=== PATIENT | female | born 1955 | race Caucasian/White ===

== ENCOUNTER 2019-12-12 03:54 | Inpatient (IN) ==
[2019-12-12] MEDS ORDERED: SODIUM CHLORIDE 0.9% 1000ML 1,000 ML IV SCH ×2 (04:30→09:45)
[2019-12-12] MEDS ORDERED: NITROGLYCERIN 2% OINTMENT 30GM TUBE EXT ONE (04:30)
[2019-12-12 04:41] LABS: Basophils # (auto) 0.03 K/uL (0-0.2); Basophils % (auto) 0.4 %; Eosinophils # (auto) 0.11 K/uL (0-0.5); Eosinophils % (auto) 1.4 %; Hematocrit (blood only) 43.3 % (37-47); Hemoglobin 14.8 g/dL (12.0-16.0); Immature Granulocytes # (auto) 0.01 K/uL (0.00-0.02); Immature Granulocytes % (auto) 0.1 %; Lymphocytes # (auto) 2.12 K/uL (1.2-3.4); Lymphocytes % (auto) 26.4 %; Mean Corpuscular Hemoglobin 29.6 pg (25-34); Mean Corpuscular Hgb Conc 34.2 g/dL (32-36); Mean Corpuscular Volume 86.6 fL (80-100); Mean Platelet Volume 9.1 fL (7.4-10.4); Monocytes # (auto) 0.72 K/uL (0.11-0.59); Neutrophils # (auto) 5.05 K/uL (1.4-6.5); Neutrophils % (auto) 62.7 %; Platelet Count 225 K/uL (130-400); RDW Coefficient of Variation 13.7 % (11.5-14.5); RDW Standard Deviation 43.1 fL (36.4-46.3); White Blood Count 8.04 K/uL (4.8-10.8)
[2019-12-12 04:49] LABS: Albumin Level 3.6 gm/dl (3.4-5.0); BUN Creatinine Ratio 13.6 (10-20); Calcium 8.8 mg/dl (8.5-10.1); Est GFR (African American) 67.5; Est GFR (Non-African American) 58.2; Magnesium 2.1 mg/dl (1.8-2.4); Potassium 3.4 mmol/L (3.5-5.1)
[2019-12-12 05:02] LABS: Albumin Globulin Ratio 0.9 (0.9-2); Bilirubin,Total 0.6 mg/dl (0.2-1); Globulin 4.2 gm/dl (2.5-4.0); Thyroid Stimulating Hormone 1.16 uIu/ml (0.300-4.500); Total Protein 7.8 gm/dl (6.4-8.2); Troponin I 0.186 ng/ml (0-0.045)
[2019-12-12] MEDS ORDERED: HEPARIN SOD (PORCINE) 1000 UNIT/ML 10 ML VIAL ONE (05:15)
[2019-12-12] MEDS ORDERED: HEPARIN SODIUM/DEXTROSE 25,000 UNITS/500 ML BAG IV SCH (05:15)
[2019-12-12] MEDS ORDERED: ONDANSETRON INJ 2 MG/ML 2 ML VIAL IV STA (05:19)
[2019-12-12] MEDS ORDERED: MoRPHine SULFATE 4 MG/ML 1 ML CARP\\VIAL IV STA (05:19)
[2019-12-12] MEDS ORDERED: METOPROLOL TARTRATE 25 MG TAB PO STA (05:35)
[2019-12-12] MEDS ORDERED: POTASSIUM CHLORIDE 20 MEQ TABCR PO STA (05:36)
[2019-12-12] MEDS ORDERED: lisinopriL 5 MG TAB PO ONE (05:46)
[2019-12-12 06:10] LABS: Lyme Ab IgG w/WB Rflx Negative (Negative); Lyme Ab IgM w/WB Rflx Negative (Negative)
[2019-12-12 06:11] LABS: Partial Thromboplastin Ratio 0.9; Partial Thromboplastin Time 25.5 Seconds (21.0-31.0); Prothrombin Time 10.2 Seconds (9.0-12.0)
[2019-12-12 06:16] LABS: Appearance Urine Clear (Clear); Bilirubin Urine Negative (Negative); Blood Urine Negative (Negative); Color Urine Yellow; Glucose Urine UA Trace (Negative); Ketones Urine Trace (Negative); Leukocyte Esterase Urine Negative (Negative); Nitrite Urine Negative (Negative); Protein Urine Negative (Negative); Specific Gravity Urine 1.017 (1.000-1.030); Urobilinogen Urine Negative (Negative); pH Urine 6.5 (4.5-7.5)
--- NOTE | 2019-12-12 06:16 | History & Physical Report ---
Date of Service December 12, 2019 Assessment & Plan (1) Uncontrolled hypertension: Hypertensive crisis Possible chronic BP elevation given LVH on EKG and x-ray Chest pain, troponin elevation secondary to above Rule out ACS Hyperglycemia rule out DM Hyperlipidemia as per records currently not on statin Rx Hypothyroidism, euthyroid as of today's TSH Hypokalemia PCU Initiate lisinopril for BP control Follow troponin, TTE RE chest pain Antiplatelet Rx (Plavix given history of aspirin anaphylaxis), beta-ismael, statin Rx, continue IV heparin if with progressive troponin elevation Cardiology consult RE chest pain Check hemoglobin A1c Replace potassium DVT prophylaxis IV heparin for now until ACS ruled out Full code History of Present Illness Chief Complaint: Chest pain Primary Care Provider: Alla Emery MD History obtained from patient, family, and records. Medical history significant for hypothyroidism, hyperlipidemia, asthma as per records. Yesterday morning patient woke up with substernal pain going to her left shoulder with some shortness of breath no cough no diaphoreses. No prior episodes. Spontaneous resolution of chest pain after 5 minutes. Patient roused from sleep this morning with recurrence of chest pain. Initial SBP at the ER 190s. Patient unaware of high blood pressure issues in the past. Denies unusual stress, dietary discretion, OTC NSAID intake. Chest pain relieved by nitroglycerin administration at the ER. IV heparin started at the ER for possible ACS. Medical History as above Surgical History : Tonsillectomy/adenoidectomy, left middle finger ORIF Family History : Heart disease, diabetes Personal/Social history : Non-smoker, occasional EtOH intake, retired pharmacist Allergies Allergy/AdvReac Type Severity Reaction Status Date / Time aspirin Allergy Severe Anaphylaxis Verified 12/12/19 04:14 chicken derived Allergy Severe sob,swellin Verified 12/12/19 04:14 g Penicillins Allergy Intermediate Rash Verified 12/12/19 04:14 Home Medications Home Medications Medication Instructions Recorded Confirmed Type Albuterol Nebulizer 1 dose INHALATION DIRECTED PRN 12/12/19 12/12/19 History cyclobenzaprine 10 mg PO DIRECTED PRN 12/12/19 12/12/19 History levothyroxine [Levoxyl] 125 mcg PO DAILY 12/12/19 12/12/19 History Past Med/Surg History Medical History Hypothyroid Social History Preferred Language: Nauruan Communication Ability: Effective 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 Beliefs That Will Affect Care: None Current Living Situation: Spouse Other Information That Helps Us Care for You: No Feels Safe at Home: Yes Safety Concerns: Feels Safe At This Time Smoking Status: Never smoker Do You Dip or Chew Tobacco: No ; Second Hand Exposure: No ; Tobacco Cessation Education Requested by Patient: No Hx Alcohol Use: Yes Alcohol type: beer and wine Hx Substance Use: No Review of Systems Review of Systems: As per HPI, all 10 systems reviewed, all other ROS negative Physical Exam Physical Exam: GENERAL: Comfortable, obese, pleasant, no respiratory distress SKIN: Normal color, warm HEENT: Bespectacled, [place] palpebral conjunctivae, no ptosis, dry buccal mucosa NECK : Supple, short neck, no tenderness CHEST : CTA, no tenderness HEART : RRR, no obvious murmurs ABDOMEN: Some distention, nontender EXTREMITIES : No LE swelling/tenderness, no other conspicuous deformities noted NEUROLOGIC : Coherent, no facial asymmetry, no other gross focality Results & Data Vital Signs (Past 12 Hours) Vital Signs Temp Pulse Pulse Resp BP BP Pulse Ox 12/12/19 05:46 72 20 157/93 H 95 12/12/19 05:12 62 18 99 12/12/19 03:57 36.9 C 86 18 191/142 H 96 Laboratory Results Laboratory Results WBC 8.04 K/uL (4.8-10.8) 12/12/19 04:00 RBC 5.00 M/uL (4.2-5.4) 12/12/19 04:00 Hgb 14.8 g/dL (12.0-16.0) 12/12/19 04:00 Hct 43.3 % (37-47) 12/12/19 04:00 MCV 86.6 fL (80-100) 12/12/19 04:00 MCH 29.6 pg (25-34) 12/12/19 04:00 MCHC 34.2 g/dL (32-36) 12/12/19 04:00 RDW Std Deviation 43.1 fL (36.4-46.3) 12/12/19 04:00 RDW Coeff of Seema 13.7 % (11.5-14.5) 12/12/19 04:00 Plt Count 225 K/uL (130-400) 12/12/19 04:00 MPV 9.1 fL (7.4-10.4) 12/12/19 04:00 Immature Gran % (Auto) 0.1 % 12/12/19 04:00 Neut % (Auto) 62.7 % 12/12/19 04:00 Lymph % (Auto) 26.4 % 12/12/19 04:00 Calvert % (Auto) 9.0 % 12/12/19 04:00 Eos % (Auto) 1.4 % 12/12/19 04:00 Baso % (Auto) 0.4 % 12/12/19 04:00 Immature Gran # (Auto) 0.01 K/uL (0.00-0.02) 12/12/19 04:00 Neut # (Auto) 5.05 K/uL (1.4-6.5) 12/12/19 04:00 Lymph # (Auto) 2.12 K/uL (1.2-3.4) 12/12/19 04:00 Calvert # (Auto) 0.72 K/uL (0.11-0.59) H 12/12/19 04:00 Eos # (Auto) 0.11 K/uL (0-0.5) 12/12/19 04:00 Baso # (Auto) 0.03 K/uL (0-0.2) 12/12/19 04:00 Sodium 141 mmol/L (136-145) 12/12/19 04:00 Potassium 3.4 mmol/L (3.5-5.1) L 12/12/19 04:00 Chloride 110 mmol/L (98-107) H 12/12/19 04:00 Carbon Dioxide 24 mmol/L (21-32) 12/12/19 04:00 Anion Gap 7.0 (3-11) 12/12/19 04:00 BUN 14 mg/dl (7-18) 12/12/19 04:00 Creatinine 1.03 mg/dl (0.6-1.2) 12/12/19 04:00 Est Cr Clr Drug Dosing 64.0 ml/min 12/12/19 04:00 Est GFR ( Amer) 67.5 12/12/19 04:00 Est GFR (Non-Af Amer) 58.2 12/12/19 04:00 BUN/Creatinine Ratio 13.6 (10-20) 12/12/19 04:00 Glucose 146 mg/dl (70-99) H 12/12/19 04:00 Calcium 8.8 mg/dl (8.5-10.1) 12/12/19 04:00 Magnesium 2.1 mg/dl (1.8-2.4) 12/12/19 04:00 Total Bilirubin 0.6 mg/dl (0.2-1) 12/12/19 04:00 AST 34 U/L (15-37) 12/12/19 04:00 ALT 53 U/L (12-78) 12/12/19 04:00 Alkaline Phosphatase 110 U/L (45-117) 12/12/19 04:00 Troponin I 0.186 ng/ml (0-0.045) H* 12/12/19 04:00 Total Protein 7.8 gm/dl (6.4-8.2) 12/12/19 04:00 Albumin 3.6 gm/dl (3.4-5.0) 12/12/19 04:00 Globulin 4.2 gm/dl (2.5-4.0) H 12/12/19 04:00 Albumin/Globulin Ratio 0.9 (0.9-2) 12/12/19 04:00 Lipase 108 U/L (73-393) 12/12/19 04:00 TSH 1.160 uIu/ml (0.300-4.500) 12/12/19 04:00 Lyme Disease IgG Ab Negative (Negative) 12/12/19 04:00 Lyme Disease IgM Ab Negative (Negative) 12/12/19 04:00 Diagnostic Findings Chest x-ray as per my interpretation cardiomegaly EKG as per my interpretation rate 60, NSR, LAD, LAFB, LVH, T wave abnormalities septal leads
[2019-12-12 06:27] LABS: D Dimer 720 ug/L FEU (0-500)
--- NOTE | 2019-12-12 07:08 | Emergency Department Note ---
History of Present Illness General Chief complaint: Chest Pain Stated complaint: Chest pain History of Present Illness Maximum Pain Intensity: 1 This is a 64-year-old female presenting to the emergency department for evaluation of left-sided chest pain radiating into her left arm for the past 1 to 2 hours. The patient does not have a history of cardiac disease herself, but states that she has a very strong family history of cardiac disease. Evidently her father had his first heart attack at 27, and her mother had her first heart attack at 50. The patient is allergic to aspirin with anaphylaxis, and has not taken anything [id number] for her symptoms. She rates her current discomfort a 1/10, dull, and radiating into her left arm. No lightheadedness or dizziness. No abdominal pain. No recent travel history. Home Medications Home Medications Medication Instructions Recorded Confirmed Type Albuterol Nebulizer 1 dose INHALATION DIRECTED PRN 12/12/19 12/12/19 History cyclobenzaprine 10 mg PO DIRECTED PRN 12/12/19 12/12/19 History levothyroxine [Levoxyl] 125 mcg PO DAILY 12/12/19 12/12/19 History cilostazol 100 mg PO BID 30 Days #60 tab 12/13/19 Rx clopidogrel [Plavix] 75 mg PO DAILY #30 tab 12/13/19 Rx lisinopril 10 mg PO QAM 30 Days #30 tab 12/13/19 Rx metoprolol tartrate 25 mg PO BID 30 Days #60 tab 12/13/19 Rx nitroglycerin [Nitrostat] 0.4 mg SUBLINGUAL UD PRN #15 tab 12/13/19 Rx Allergies Allergy/AdvReac Type Severity Reaction Status Date / Time aspirin Allergy Severe Anaphylaxis Verified 12/12/19 04:14 chicken derived Allergy Severe sob,swellin Verified 12/12/19 04:14 g Penicillins Allergy Intermediate Rash Verified 12/12/19 04:14 Past Med/Surg History Medical History Hypothyroid Social History Preferred Language: Persian Communication Ability: Effective 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 Beliefs That Will Affect Care: None Current Living Situation: Spouse Feels Safe at Home: Yes Smoking Status: Never smoker Second Hand Exposure: No ; Hx Alcohol Use: Yes Alcohol type: beer and wine Hx Substance Use: No Review of Systems A total of 10 systems reviewed and were otherwise negative Physical Exam Vital Signs Vital Signs - 24 hr 12/12/19 03:57 12/12/19 05:12 12/12/19 05:46 Temperature 36.9 C Temperature Source Oral Pulse Rate 86 62 Pulse Rate [Finger] 72 Pulse Rhythm Regular Pulse Rhythm [Finger] Regular Pulse Strength [Finger] Normal Respiratory Rate 18 18 20 Respiratory Effort / Characteristics Non-Labored Spontaneous Respiratory Depth Normal Normal Respiratory Pattern Regular Blood Pressure 191/142 H Blood Pressure [Left Arm] 157/93 H Blood Pressure Mean 158 Blood Pressure Mean [Left Arm] 114 Blood Pressure Position [Left Arm] Lying Pulse Oximetry 96 99 95 Oxygen Delivery Method Room Air Room Air Room Air Sepsis Recent Fever Within 48 Hours No Sepsis Action Taken by Nursing No Action Required 12/12/19 06:20 Temperature Temperature Source Pulse Rate Pulse Rate [Finger] 81 Pulse Rhythm Pulse Rhythm [Finger] Regular Pulse Strength [Finger] Normal Respiratory Rate 17 Respiratory Effort / Characteristics Non-Labored Spontaneous Respiratory Depth Normal Respiratory Pattern Regular Blood Pressure Blood Pressure [Left Arm] 162/105 H Blood Pressure Mean Blood Pressure Mean [Left Arm] 124 Blood Pressure Position [Left Arm] Lying Pulse Oximetry 94 Oxygen Delivery Method Room Air Sepsis Recent Fever Within 48 Hours Sepsis Action Taken by Nursing VITALS: Vitals are noted on the nurse's note and reviewed by myself. Vital signs with elevated blood pressure GENERAL: Well-developed, well-nourished, white female, who is in no acute distress and resting comfortably. Patient is cooperative with the examination. HEAD: Normocephalic atraumatic. EARS: External ear normal. External auditory canals clear, tympanic membranes pearly spencer without erythema or effusion bilaterally. EYES: Pupils equal round and reactive to light and accommodation. Conjunctivae without injection, sclerae without icterus. Extraocular movements intact. NOSE: Patent, turbinates without inflammation or discharge. MOUTH: Mucous membranes moist. Tonsils are not enlarged. Pharynx without erythema, blood, or exudate. Uvula midline. Airway patent. NECK: Supple without nuchal rigidity. No lymphadenopathy. No thyromegaly. Cervical spine is nontender. HEART: Regular rate and rhythm without murmurs gallops or rubs. LUNGS: Clear to auscultation bilaterally without wheezes, rales or rhonchi. No retractions or accessory muscle use. ABDOMEN: Positive normal bowel sounds x 4. Soft, nontender, without masses or organomegaly. No guarding or rebound tenderness. MUSCULOSKELETAL: No muscle atrophy, erythema, or edema noted. Full range of motion in all extremities. NEURO: Patient was alert and oriented to person place and time. CN II through XII grossly intact. SKIN: The skin was without rashes, erythema, edema, or bruising. Capillary refill less than 2 seconds. Course Administered Medications Discontinued Medications Acetaminophen (Tylenol) 650 mg PO Q4H PRN PRN Reason: Pain or Fever Stop: 01/11/20 07:54 Last Admin: 12/13/19 11:08 Dose: 650 mg Documented by: [id number] Atorvastatin Calcium (Lipitor) 80 mg PO QAM [facility] Stop: 01/11/20 09:44 Last Admin: 12/13/19 08:24 Dose: Not Given Documented by: [id number] Admin: 12/12/19 11:00 Dose: Not Given Documented by: [id number] Cilostazol (Pletal) 100 mg PO BID [facility] Stop: 01/11/20 20:59 Last Admin: 12/13/19 08:23 Dose: 100 mg Documented by: [id number] Admin: 12/12/19 20:58 Dose: 100 mg Documented by: [id number] Fentanyl Citrate (Fentanyl Citrate) Confirm Administered Dose 100 mcg .ROUTE .STK-MED ONE Stop: 12/12/19 08:36 Last Admin: 12/12/19 10:37 Dose: Not Given Documented by: [id number] Heparin Sodium (Porcine) (Heparin Iv Bolus) Confirm Administered Dose 10,000 units .ROUTE .STK-MED ONE Stop: 12/12/19 05:16 Last Admin: 12/12/19 05:29 Dose: 6,000 units Documented by: [id number] Cosigned by: [id number] Heparin Sodium (Porcine) (Heparin Iv Bolus (Transmitter Chief Use Only)) Confirm Administered Dose 10,000 units .ROUTE .STK-MED ONE Stop: 12/12/19 08:35 Last Admin: 12/12/19 10:36 Dose: Not Given Documented by: [id number] Heparin Sodium/Dextrose () 1 ea IV NOW STA; Protocol Stop: 12/12/19 05:05 Last Admin: 12/12/19 05:41 Dose: Not Given Documented by: [id number] Heparin Sodium/Sodium Chloride (Heparin/Nss 1000 Unit/500ml Flush Bag) Confirm Administered Dose 3,000 units IV .STK-MED ONE Stop: 12/12/19 08:36 Last Admin: 12/12/19 10:37 Dose: Not Given Documented by: [id number] Sodium Chloride (Nss 1000ml) 1,000 mls @ 999 mls/hr IV .Q1H1M [facility] Stop: 12/12/19 05:30 Last Infusion: 12/12/19 05:57 Dose: 0 mls/hr Documented by: [id number] Admin: 12/12/19 04:50 Dose: 999 mls/hr Documented by: [id number] Heparin Sodium/Dextrose (Heparin Sodium/Dextrose) 25,000 units in 500 mls @ 26 mls/hr IV .[id number] [facility]; Protocol Stop: 01/11/20 05:14 Last Titration: 12/12/19 10:38 Dose: 0 units/hr, 0 mls/hr Documented by: [id number] Cosigned by: [id number] Admin: 12/12/19 05:29 Dose: 1,300 units/hr, 26 mls/hr Documented by: [id number] Cosigned by: [id number] Lactated Ringer's (Lr) 1,000 mls @ 40 mls/hr IV .Q24H ONE Stop: 12/13/19 07:59 Last Admin: 12/12/19 10:36 Dose: Not Given Documented by: [id number] Sodium Chloride (Nss 1000ml) 1,000 mls @ 100 mls/hr IV .Q10H [facility] Stop: 12/12/19 17:14 Last Infusion: 12/12/19 17:58 Dose: 0 mls/hr Documented by: [id number] Admin: 12/12/19 10:37 Dose: 100 mls/hr Documented by: [id number] [facility] Stop: 01/11/20 08:14 Last Admin: 12/13/19 06:13 Dose: Not Given Documented by: [id number] Admin: 12/12/19 11:00 Dose: Not Given Documented by: [id number] Lisinopril (Zestril) 5 mg PO NOW ONE Stop: 12/12/19 05:47 Last Admin: 12/12/19 06:18 Dose: 5 mg Documented by: [id number] Lisinopril (Zestril) 10 mg PO QAM [facility] Stop: 01/12/20 08:59 Last Admin: 12/13/19 08:24 Dose: 10 mg Documented by: [id number] Metoprolol Tartrate (Lopressor) 25 mg PO NOW STA Stop: 12/12/19 05:36 Last Admin: 12/12/19 06:18 Dose: 25 mg Documented by: [id number] Metoprolol Tartrate (Lopressor) 25 mg PO BID [facility] Stop: 01/11/20 20:59 Last Admin: 12/13/19 08:23 Dose: 25 mg Documented by: [id number] Admin: 12/12/19 20:57 Dose: 25 mg Documented by: [id number] Midazolam HCl (Versed) Confirm Administered Dose 2 mg .ROUTE .STK-MED ONE Stop: 12/12/19 08:36 Last Admin: 12/12/19 10:37 Dose: Not Given Documented by: [id number] Morphine Sulfate (Morphine Sulfate) 4 mg IV NOW STA Stop: 12/12/19 05:20 Last Admin: 12/12/19 05:40 Dose: 4 mg Documented by: [id number] Morphine Sulfate (Morphine Sulfate) 4 mg IV Q4H PRN PRN Reason: Pain Stop: 12/26/19 07:54 Last Admin: 12/12/19 08:10 Dose: 2 mg Documented by: [id number] Nicardipine HCl (Cardene) Confirm Administered Dose 25 mg .ROUTE .STK-MED ONE Stop: 12/12/19 08:35 Last Admin: 12/12/19 10:36 Dose: Not Given Documented by: [id number] Nitroglycerin (Nitro-Bid 2%) 1 inch EXT NOW ONE Stop: 12/12/19 04:31 Last Admin: 12/12/19 04:50 Dose: 1 inch Documented by: [id number] Nitroglycerin/Dextrose (Nitroglycerin/D5w 100 Mcg/Ml 20ml Syringe) Confirm Administered Dose 2,000 mcg .ROUTE .STK-MED ONE Stop: 12/12/19 08:36 Last Admin: 12/12/19 10:37 Dose: Not Given Documented by: [id number] Ondansetron HCl (Zofran) 4 mg IV NOW STA Stop: 12/12/19 05:20 Last Admin: 12/12/19 05:41 Dose: 4 mg Documented by: [id number] Potassium Chloride (Klor-Con M20) 40 meq PO NOW STA Stop: 12/12/19 05:37 Last Admin: 12/12/19 06:18 Dose: 40 meq Documented by: [id number] Ticagrelor (Brilinta) Confirm Administered Dose 180 mg PO .STK-MED ONE Stop: 12/12/19 09:41 Last Admin: 12/12/19 09:56 Dose: 180 mg Documented by: [id number] Ticagrelor (Brilinta) 90 mg PO BID JOHN Stop: 01/11/20 20:59 Last Admin: 12/13/19 08:24 Dose: 90 mg Documented by: [id number] Admin: 12/12/19 20:58 Dose: 90 mg Documented by: [id number] Medical Decision Making Differential Diagnosis Differential diagnosis includes, but is not limited to: Myocardial infarction, dysrhythmia, pericarditis, pneumothorax, aortic aneurysm/dissection, DVT/PE, anxiety, GERD, PUD, electrolyte imbalance, thyroid disorder, pneumonia, bronchitis, pancreatitis, and others Laboratory Data Result diagrams: 12/13/19 06:33 12/13/19 06:33 Lab Results 12/12/19 12/12/19 12/12/19 Range/Units 04:00 04:00 04:00 WBC 8.04 (4.8-10.8) K/uL RBC 5.00 (4.2-5.4) M/uL Hgb 14.8 (12.0-16.0) g/dL Hct 43.3 (37-47) % MCV 86.6 (80-100) fL MCH 29.6 (25-34) pg MCHC 34.2 (32-36) g/dL RDW Std Deviation 43.1 (36.4-46.3) fL RDW Coeff of Seema 13.7 (11.5-14.5) % Plt Count 225 (130-400) K/uL MPV 9.1 (7.4-10.4) fL Immature Gran % (Auto) 0.1 % Neut % (Auto) 62.7 % Lymph % (Auto) 26.4 % Cameron % (Auto) 9.0 % Eos % (Auto) 1.4 % Baso % (Auto) 0.4 % Immature Gran # (Auto) 0.01 (0.00-0.02) K/uL Neut # (Auto) 5.05 (1.4-6.5) K/uL Lymph # (Auto) 2.12 (1.2-3.4) K/uL Cameron # (Auto) 0.72 H (0.11-0.59) K/uL Eos # (Auto) 0.11 (0-0.5) K/uL Baso # (Auto) 0.03 (0-0.2) K/uL PT 10.2 (9.0-12.0) Seconds INR 1.0 (0.9-1.1) APTT 25.5 (21.0-31.0) Seconds PTT Ratio 0.9 D-Dimer 720 H* (0-500) ug/L FEU Sodium 141 (136-145) mmol/L Potassium 3.4 L (3.5-5.1) mmol/L Chloride 110 H (98-107) mmol/L Carbon Dioxide 24 (21-32) mmol/L Anion Gap 7.0 (3-11) BUN 14 (7-18) mg/dl Creatinine 1.03 (0.6-1.2) mg/dl Est Cr Clr Drug Dosing 64.0 ml/min Est GFR ( Amer) 67.5 Est GFR (Non-Af Amer) 58.2 BUN/Creatinine Ratio 13.6 (10-20) Glucose 146 H (70-99) mg/dl Estimat Average Glucose mg/dl Hemoglobin A1c (4.5-5.6) % Calcium 8.8 (8.5-10.1) mg/dl Magnesium 2.1 (1.8-2.4) mg/dl Total Bilirubin 0.6 (0.2-1) mg/dl AST 34 (15-37) U/L ALT 53 (12-78) U/L Alkaline Phosphatase 110 (45-117) U/L Troponin I 0.186 H* (0-0.045) ng/ml Total Protein 7.8 (6.4-8.2) gm/dl Albumin 3.6 (3.4-5.0) gm/dl Globulin 4.2 H (2.5-4.0) gm/dl Albumin/Globulin Ratio 0.9 (0.9-2) Lipase 108 (73-393) U/L TSH 1.160 (0.300-4.500) uIu/ml Urine Color Urine Appearance (Clear) Urine pH (4.5-7.5) Ur Specific [place] (1.000-1.030) Urine Protein (Negative) Urine Glucose (UA) (Negative) Urine Ketones (Negative) Urine Blood (Negative) Urine Nitrite (Negative) Urine Bilirubin (Negative) Urine Urobilinogen (Negative) Ur Leukocyte Esterase (Negative) Lyme Disease IgG Ab (Negative) Lyme Disease IgM Ab (Negative) 12/12/19 12/12/19 12/12/19 Range/Units 04:00 04:00 05:49 WBC (4.8-10.8) K/uL RBC (4.2-5.4) M/uL Hgb (12.0-16.0) g/dL Hct (37-47) % MCV (80-100) fL MCH (25-34) pg MCHC (32-36) g/dL RDW Std Deviation (36.4-46.3) fL RDW Coeff of Seema (11.5-14.5) % Plt Count (130-400) K/uL MPV (7.4-10.4) fL Immature Gran % (Auto) % Neut % (Auto) % Lymph % (Auto) % Cameron % (Auto) % Eos % (Auto) % Baso % (Auto) % Immature Gran # (Auto) (0.00-0.02) K/uL Neut # (Auto) (1.4-6.5) K/uL Lymph # (Auto) (1.2-3.4) K/uL Cameron # (Auto) (0.11-0.59) K/uL Eos # (Auto) (0-0.5) K/uL Baso # (Auto) (0-0.2) K/uL PT (9.0-12.0) Seconds INR (0.9-1.1) APTT (21.0-31.0) Seconds PTT Ratio D-Dimer (0-500) ug/L FEU Sodium (136-145) mmol/L Potassium (3.5-5.1) mmol/L Chloride (98-107) mmol/L Carbon Dioxide (21-32) mmol/L Anion Gap (3-11) BUN (7-18) mg/dl Creatinine (0.6-1.2) mg/dl Est Cr Clr Drug Dosing ml/min Est GFR ( Amer) Est GFR (Non-Af Amer) BUN/Creatinine Ratio (10-20) Glucose (70-99) mg/dl Estimat Average Glucose 131 mg/dl Hemoglobin A1c 6.2 H (4.5-5.6) % Calcium (8.5-10.1) mg/dl Magnesium (1.8-2.4) mg/dl Total Bilirubin (0.2-1) mg/dl AST (15-37) U/L ALT (12-78) U/L Alkaline Phosphatase (45-117) U/L Troponin I (0-0.045) ng/ml Total Protein (6.4-8.2) gm/dl Albumin (3.4-5.0) gm/dl Globulin (2.5-4.0) gm/dl Albumin/Globulin Ratio (0.9-2) Lipase (73-393) U/L TSH (0.300-4.500) uIu/ml Urine Color Yellow Urine Appearance Clear (Clear) Urine pH 6.5 (4.5-7.5) Ur Specific [place] 1.017 (1.000-1.030) Urine Protein Negative (Negative) Urine Glucose (UA) Trace H (Negative) Urine Ketones Trace H (Negative) Urine Blood Negative (Negative) Urine Nitrite Negative (Negative) Urine Bilirubin Negative (Negative) Urine Urobilinogen Negative (Negative) Ur Leukocyte Esterase Negative (Negative) Lyme Disease IgG Ab Negative (Negative) Lyme Disease IgM Ab Negative (Negative) Imaging Data Radiologist's Impression: XR chest 1V portable HISTORY: Atypical chest pain COMPARISON: None. FINDINGS: The lungs are clear. The heart is mildly enlarged. No pleural effusions. No pneumothorax. IMPRESSION: Mild cardiomegaly. ECG Data Additional Comments: EKG #1 Normal sinus rhythm @61bpm Left ventricular hypertrophy with repolarization abnormality Abnormal ECG No previous ECGs available EKG #2 Sinus bradycardia @56bpm Minimal voltage criteria for LVH, may be normal variant Anterolateral infarct , age undetermined Abnormal ECG When compared with ECG of 12-DEC-2019 03:57, Anterolateral infarct is now Present Blood Pressure Blood Pressure Disposition: further management by hospitalist [facility] Narrative Physical exam and history were performed. Nursing notes, EMR, and Medication List were personally reviewed. Patient appears to have chest pain radiated to her left arm. EKG was performed and shows normal sinus rhythm without acute ST elevation. IV access was established and labs were obtained. The patient has anaphylaxis to aspirin and was given Nitropaste. She was gently hydrated with normal saline. She was placed on the library serials assistant and remained in normal sinus rhythm with a rate in the 60s. The patient's blood work is as above and was reviewed. She does not have a significantly elevated white blood cell count, gross anemia, bandemia, or gross electrolyte imbalance. Lipase and transaminases are not diagnostic. The patient's troponin is elevated at 0.186, and upon receiving this I did have nursing repeat an EKG. Repeat EKG does not show acute ST elevation, however there does appear to be findings suggesting an anterior lateral infarct. The patient does report significant improvement of pain after the Nitropaste, stating that the area of pain has shrunk significantly. I will give her a small amount of morphine and Zofran for additional comfort. The case was discussed with my attending physician, and the patient was given IV heparin bolus and drip here in the ER. Overall the patient does not appear well for discharge home. I suspect that she is having a non-ST elevation DE. The case was discussed with the [facility] hospitalist who agreed to evaluate the patient here in the department. Please see their dictation for further patient course, plan, and disposition. The chart was completed utilizing [employer] Speech Voice Recognition Software. Grammatical errors, random word insertions, pronoun errors, and incomplete sentences are an occasional consequence of this system due to software limitations, ambient noise, and hardware issues. Any formal questions or concerns about the content, text, or information contained within the body of this dictation should be directly addressed to the provider for clarification. . Impression & Plan Non-STEMI (non-ST elevated myocardial infarction), Chest pain, Elevated troponin Discharge Plan Visit Data *Final* Discharge Date/Time: 12/12/19 06:44 Chief Complaint: Chest Pain Stated Complaint: Chest pain ED Provider: Letty Askew ED Midlevel Provider: Asad Mccabe Discharge Problem: Non-STEMI (non-ST elevated myocardial infarction), Chest pain, Elevated troponin Patient Disposition: Admitted As Inpatient Discharge Instructions Interventions: ED Discharge Assessment Last Done: 12/12/19 06:44
[2019-12-12] MEDS ORDERED: PROMETHAZINE HCL 12.5 MG in SODIUM CHLORIDE 0.9% 50 ML IV PRN (07:55)
[2019-12-12] MEDS ORDERED: MoRPHine SULFATE 4 MG/ML 1 ML CARP\\VIAL IV PRN (07:55)
[2019-12-12] MEDS ORDERED: LORazepam 0.5 MG/1 ML VIAL IV PRN (07:55)
[2019-12-12] MEDS ORDERED: TRAMADOL HCL 50 MG TABLET PO PRN (07:55)
[2019-12-12] MEDS ORDERED: NITROGLYCERIN SL 0.4 MG/TAB TAB SL PRN ×2 (07:55→09:40)
[2019-12-12] MEDS ORDERED: ACETAMINOPHEN 325 MG TAB PO PRN ×2 (07:55→09:40)
[2019-12-12] MEDS ORDERED: LACTATED RINGER'S 1,000 ML IV ONE (08:00)
[2019-12-12 08:14] LABS: Estimated Average Glucose 131 mg/dl; Hemoglobin A1C 6.2 % (4.5-5.6)
--- NOTE | 2019-12-12 08:19 | XRay Report ---
XR chest 1V portable HISTORY: Atypical chest pain COMPARISON: None. FINDINGS: The lungs are clear. The heart is mildly enlarged. No pleural effusions. No pneumothorax. IMPRESSION: Mild cardiomegaly. ACT 112: Negative or not required by law. Electronically signed by: Juan Paul M.D. 12/12/2019 8:18 AM
--- NOTE | 2019-12-12 08:28 | Hospitalist Progress Note ---
Date of Service December 12, 2019 Assessment & Plan (1) Uncontrolled hypertension: Hypertensive crisis Possible chronic BP elevation given LVH on EKG and x-ray Chest pain, troponin elevation secondary to above Rule out ACS Hyperglycemia rule out DM Hyperlipidemia as per records currently not on statin Rx Hypothyroidism, euthyroid as of today's TSH Hypokalemia PCU Initiate lisinopril for BP control Follow troponin, TTE RE chest pain Antiplatelet Rx (Plavix given history of aspirin anaphylaxis), beta-ismael, continue IV heparin if with progressive troponin elevation Cardiology consult RE chest pain Check hemoglobin A1c Replace potassium DVT prophylaxis IV heparin for now until ACS ruled out Full code (2) Chest pain: Non-ST elevation IA Patient currently having active substernal chest pain radiating to the left arm despite having 2% of Nitropaste 1 inch on Troponin elevated from 0.18 to 2.89 Third EKG showing T wave depressions in leads I to III She has strong family history of CAD including IA with her parents --Heart alert called --Already on heparin drip, Nitropaste Patient Not given aspirin as Shehas history of anaphylaxis-"stopped breathing" Ordered additional 2 mg of IV morphine, with improvement of chest pain IV NSS also ordered --Patient evaluated by Dr. Burks, to be taken to cardiac cath emergently Hypertension -- Hypertension already given metoprolol and lisinopril Continue to monitor History of hypothyroidism TSH normal Continue levothyroxine DVT prophylaxis, will be ordered SCDs Disposition anticipate discharge to home when medically stable Subjective ff up for chest pain notified by RN as patient was still having chest pain Seen resting in bed, not in distress but does report 7 out of 10 substernal chest pain, pressure, radiating to the left arm Has some mild nausea Denies headache, dizziness, shortness of breath, palpitations No other symptoms Review of Systems Review of Systems: All systems reviewed & are unremarkable except as noted in HPI & below Physical Exam Physical Exam: General- oriented x 3, not in distress, speaks in sentences with no effort or accessory muscle use Head- atraumatic Eyes- PERRL, EOMI, anicteric ENT- oropharynx clear Neck- supple, no JVD, no adenopathy, no thyromegaly; carotids +2/2, no bruits appreciated Lungs- clear to auscultation bilaterally, no rales/wheezes Heart- normal rate, regular rhythm; no murmur, no gallop, no rub appreciated Abdomen- normal bowel sounds, nondistended, soft, nontender, no masses or hepatosplenomegaly Extremities- no pretibial edema, no calf tenderness; peripheral pulses intact Neuro- alert, oriented x 3; CN 2-12 grossly intact; motor 5/5 bilaterally;sensation 100% on all extremities; no other gross focal neurologic deficits Skin- warm & dry Results & Data ([facility]) Vital Signs (Past 12 Hours) Vital Signs Temp Pulse Pulse Resp BP BP Pulse Ox 12/12/19 07:24 36.6 C 67 18 166/97 H 97 12/12/19 06:20 81 17 162/105 H 94 12/12/19 05:46 72 20 157/93 H 95 12/12/19 05:12 62 18 99 12/12/19 03:57 36.9 C 86 18 191/142 H 96 Laboratory Results Laboratory Results - last 24 hr 12/12/19 12/12/19 12/12/19 04:00 04:00 04:00 WBC 8.04 RBC 5.00 Hgb 14.8 Hct 43.3 MCV 86.6 MCH 29.6 MCHC 34.2 RDW Std Deviation 43.1 RDW Coeff of Seema 13.7 Plt Count 225 MPV 9.1 Immature Gran % (Auto) 0.1 Neut % (Auto) 62.7 Lymph % (Auto) 26.4 [place] % (Auto) 9.0 Eos % (Auto) 1.4 Baso % (Auto) 0.4 Immature Gran # (Auto) 0.01 Neut # (Auto) 5.05 Lymph # (Auto) 2.12 [place] # (Auto) 0.72 H Eos # (Auto) 0.11 Baso # (Auto) 0.03 PT 10.2 INR 1.0 APTT 25.5 PTT Ratio 0.9 D-Dimer 720 H* Sodium 141 Potassium 3.4 L Chloride 110 H Carbon Dioxide 24 Anion Gap 7.0 BUN 14 Creatinine 1.03 Est Cr Clr Drug Dosing 64.0 Est GFR ( Amer) 67.5 Est GFR (Non-Af Amer) 58.2 BUN/Creatinine Ratio 13.6 Glucose 146 H Estimat Average Glucose Hemoglobin A1c Calcium 8.8 Magnesium 2.1 Total Bilirubin 0.6 AST 34 ALT 53 Alkaline Phosphatase 110 Troponin I 0.186 H* Total Protein 7.8 Albumin 3.6 Globulin 4.2 H Albumin/Globulin Ratio 0.9 Lipase 108 TSH 1.160 Urine Color Urine Appearance Urine pH Ur Specific [place] Urine Protein Urine Glucose (UA) Urine Ketones Urine Blood Urine Nitrite Urine Bilirubin Urine Urobilinogen Ur Leukocyte Esterase Lyme Disease IgG Ab Lyme Disease IgM Ab 12/12/19 12/12/19 12/12/19 04:00 04:00 05:49 WBC RBC Hgb Hct MCV MCH MCHC RDW Std Deviation RDW Coeff of Seema Plt Count MPV Immature Gran % (Auto) Neut % (Auto) Lymph % (Auto) [place] % (Auto) Eos % (Auto) Baso % (Auto) Immature Gran # (Auto) Neut # (Auto) Lymph # (Auto) [place] # (Auto) Eos # (Auto) Baso # (Auto) PT INR APTT PTT Ratio D-Dimer Sodium Potassium Chloride Carbon Dioxide Anion Gap BUN Creatinine Est Cr Clr Drug Dosing Est GFR ( Amer) Est GFR (Non-Af Amer) BUN/Creatinine Ratio Glucose Estimat Average Glucose 131 Hemoglobin A1c 6.2 H Calcium Magnesium Total Bilirubin AST ALT Alkaline Phosphatase Troponin I Total Protein Albumin Globulin Albumin/Globulin Ratio Lipase TSH Urine Color Yellow Urine Appearance Clear Urine pH 6.5 Ur Specific [place] 1.017 Urine Protein Negative Urine Glucose (UA) Trace H Urine Ketones Trace H Urine Blood Negative Urine Nitrite Negative Urine Bilirubin Negative Urine Urobilinogen Negative Ur Leukocyte Esterase Negative Lyme Disease IgG Ab Negative Lyme Disease IgM Ab Negative 12/12/19 06:45 WBC RBC Hgb Hct MCV MCH MCHC RDW Std Deviation RDW Coeff of Seema Plt Count MPV Immature Gran % (Auto) Neut % (Auto) Lymph % (Auto) [place] % (Auto) Eos % (Auto) Baso % (Auto) Immature Gran # (Auto) Neut # (Auto) Lymph # (Auto) [place] # (Auto) Eos # (Auto) Baso # (Auto) PT INR APTT PTT Ratio D-Dimer Sodium Potassium Chloride Carbon Dioxide Anion Gap BUN Creatinine Est Cr Clr Drug Dosing Est GFR ( Amer) Est GFR (Non-Af Amer) BUN/Creatinine Ratio Glucose Estimat Average Glucose Hemoglobin A1c Calcium Magnesium Total Bilirubin AST ALT Alkaline Phosphatase Troponin I 0.890 H* Total Protein Albumin Globulin Albumin/Globulin Ratio Lipase TSH Urine Color Urine Appearance Urine pH Ur Specific [place] Urine Protein Urine Glucose (UA) Urine Ketones Urine Blood Urine Nitrite Urine Bilirubin Urine Urobilinogen Ur Leukocyte Esterase Lyme Disease IgG Ab Lyme Disease IgM Ab
[2019-12-12] MEDS ORDERED: NiCARDipine HCL INJ 2.5 MG/ML 10 ML AMP ONE (08:34)
[2019-12-12] MEDS ORDERED: HEPARIN (PORCINE) 1000 UNIT/ML 10 ML (CATH LAB USE ONLY) ONE (08:34)
[2019-12-12] MEDS ORDERED: MIDAZOLAM HCL 1 MG/ML 2ML VIAL ONE (08:35)
[2019-12-12] MEDS ORDERED: NITROGLYCERIN/D5W 100MCG/ML 20ML SYR ONE (08:35)
[2019-12-12] MEDS ORDERED: fentaNYL citrate 100 MCG/2 ML VIAL ONE (08:35)
[2019-12-12] MEDS ORDERED: TICAGRELOR 90 MG TAB PO ONE (09:40)
[2019-12-12] MEDS ORDERED: ONDANSETRON INJ 2 MG/ML 2 ML VIAL IV PRN (09:40)
--- NOTE | 2019-12-12 09:45 | Post Anesthesia Assessment ---
Date of Service December 12, 2019 Post Sedation Assessment Vital Signs Temp Pulse Pulse Resp BP BP Pulse Ox 12/12/19 07:24 97.9 F 67 18 166/97 H 97 12/12/19 06:20 81 17 162/105 H 94 12/12/19 05:46 72 20 157/93 H 95 12/12/19 05:12 62 18 99 12/12/19 03:57 98.4 F 86 18 191/142 H 96 Recovery Score Activity: Moves 4 extremities Respiration: Deep Breath/Cough Circulation: +/-20% PreAnes Value Consciousness: Fully Awake Oxygen Saturation: O2 needed for >90% Discharge Sedation Level of Care: Fast Track Phase II Post Sedation Plan On clinical assessment, the patient appears to have tolerated the sedation without complications. Patient is recovering as anticipated. Patient will continue to be monitored by nursing and may be discharged when sedation discharge criteria are met per below protocol. Upon Completions of procedure up to 15 minutes continue every 5 minute vital signs and the P.A.R. score; then discharge to a Phase I or Fast Track to Phase II per the following guidelines: * Discharge Patient to appropriate Phase II area if PAR is 8 or greater or return to pre- procedure baseline. The post - procedure orders will be as directed. * If PAR score is less than 8 or not return to pre-procedure baseline then patient will follow Phase I monitoring till PAR is reached for Phase II. The Phase I may be done in procedure room or may call to secure a Phase I area. * If naloxone or flumazenil are used for reversal, hold in Phase I for continued monitoring from when last reversal dose was given for a minimum of 60 minutes or longer pending the nurse and/or physician discretion of patient condition before discharge to Phase II. Please call the Sedation Physician to re-evaluate and complete post-note for discharge to Phase II area. Do NOT discharge from procedure sedation or Phase 1 until post- sedation evaluation note is complete by procedure /sedation MD Sedation Discharge Instructions to be given to the patient at discharge to home.
--- NOTE | 2019-12-12 09:47 | Post Operative Brief Note ---
Cardiology Brief Post Op Date of Surgery December 12, 2019 Pre & Post Diagnosis Operation Date: 12/12/19 08:00 <No data on this case meets the specified criteria> Procedure -- Insurance Account Representative Stevo Burks MD Ethics Manager Marciano Estimated Blood Loss 10 Findings Consistent with Post-Op Diagnosis 100% acute proximal LAD occlusion 100% chronic proximal RCA occlusion. Distal vessel fills via left to right collaterals Large circumflex widely patent. Successful PCI of proximal LAD with single drug-eluting stent (3.5 x 38 Maurice). Anesthesia Type RN Sedation Complications none Disposition Disposition: PCU
--- NOTE | 2019-12-12 10:59 | Cardiology Consultation ---
Date of Consultation December 12, 2019 Assessment & Plan (1) Chest pain: (2) Uncontrolled hypertension: (3) Non-STEMI (non-ST elevated myocardial infarction): The patient is resting comfortably post stent placement. She is allergic to aspirin and will be discharged today on Brilinta only. I will arrange follow-up as an outpatient. Her echocardiogram did show wall motion abnormalities in the distribution of the LAD with mild LV dysfunction which should recover over the next several weeks. (4) Aspirin allergy: History of Present Illness Attending Physician: Fabrizio Dejesus MD History of Present Illness This is a 64-year-old female who presented with hypertensive urgency and chest pain. She had a elevation in her cardiac troponins and was taken to the heart lab this morning. She received a coronary stent within the LAD and is returned to her room in stable condition. She will need continued blood pressure management I would recommend continuing the metoprolol and increasing her lisinopril. She has been placed on dual antiplatelet therapy post stent. Allergies Allergy/AdvReac Type Severity Reaction Status Date / Time aspirin Allergy Severe Anaphylaxis Verified 12/12/19 04:14 chicken derived Allergy Severe sob,swellin Verified 12/12/19 04:14 g Penicillins Allergy Intermediate Rash Verified 12/12/19 04:14 Home Medications Home Medications Medication Instructions Recorded Confirmed Type Albuterol Nebulizer 1 dose INHALATION DIRECTED PRN 12/12/19 12/12/19 History cyclobenzaprine 10 mg PO DIRECTED PRN 12/12/19 12/12/19 History levothyroxine [Levoxyl] 125 mcg PO DAILY 12/12/19 12/12/19 History Patient History Medical History Hypothyroid Social History Preferred Language: Somali Communication Ability: Effective Independent Film Maker Required: No Beliefs That Will Affect Care: None Current Living Situation: Spouse Other Information That Helps Us Care for You: No Feels Safe at Home: Yes Safety Concerns: Feels Safe At This Time Smoking Status: Never smoker Do You Dip or Chew Tobacco: No ; Second Hand E xposure: No ; Tobacco Cessation Education Requested by Patient: No Hx Alcohol Use: Yes Alcohol type: beer and wine Hx Substance Use: No Review of Systems Review of Systems: All systems reviewed & are unremarkable except as noted in HPI & below Nothing additional to add. Physical Exam Physical Exam: General: no acute distress and stated age Head: normocephalic, no masses, lesions, tenderness or abnormalities Eyes: conjunctiva are pink and non-injected, sclera clear Neck: supple, no adenopathy, no bruits, normal jugular venous pulse, no hepatojugular reflux Chest: normal shape and normal respiratory effort Lungs: clear to auscultation and percussion Cardiac Exam: - regular rate & rhythm, no murmurs gallops or rubs - normal S1, normal S2 Pulses: 2(+) throughout Abdomen: abdomen soft, non-tender, no abnormal masses and no hepatosplenomegaly Musculoskeletal: no gait disturbance, no joint inflammation, no deforming arthritis Extremities: Post cath site in the right wrist is clean and dry with a hemo- band. Neuro: grossly normal exam Results & Data Vital Signs (Past 12 Hours) Vital Signs Temp Pulse Pulse Resp BP BP Pulse Ox 12/12/19 07:24 36.6 C 67 18 166/97 H 97 12/12/19 06:20 81 17 162/105 H 94 12/12/19 05:46 72 20 157/93 H 95 12/12/19 05:12 62 18 99 12/12/19 03:57 36.9 C 86 18 191/142 H 96 Laboratory Results Laboratory Results - last 24 hr 12/12/19 12/12/19 12/12/19 04:00 04:00 04:00 WBC 8.04 RBC 5.00 Hgb 14.8 Hct 43.3 MCV 86.6 MCH 29.6 MCHC 34.2 RDW Std Deviation 43.1 RDW Coeff of Seema 13.7 Plt Count 225 MPV 9.1 Immature Gran % (Auto) 0.1 Neut % (Auto) 62.7 Lymph % (Auto) 26.4 [place] % (Auto) 9.0 Eos % (Auto) 1.4 Baso % (Auto) 0.4 Immature Gran # (Auto) 0.01 Neut # (Auto) 5.05 Lymph # (Auto) 2.12 [place] # (Auto) 0.72 H Eos # (Auto) 0.11 Baso # (Auto) 0.03 PT 10.2 INR 1.0 APTT 25.5 PTT Ratio 0.9 Activ Coag Time Kaolin D-Dimer 720 H* Sodium 141 Potassium 3.4 L Chloride 110 H Carbon Dioxide 24 Anion Gap 7.0 BUN 14 Creatinine 1.03 Est Cr Clr Drug Dosing 64.0 Est GFR ( Amer) 67.5 Est GFR (Non-Af Amer) 58.2 BUN/Creatinine Ratio 13.6 Glucose 146 H Estimat Average Glucose Hemoglobin A1c Calcium 8.8 Magnesium 2.1 Total Bilirubin 0.6 AST 34 ALT 53 Alkaline Phosphatase 110 Troponin I 0.186 H* Total Protein 7.8 Albumin 3.6 Globulin 4.2 H Albumin/Globulin Ratio 0.9 Lipase 108 TSH 1.160 Urine Color Urine Appearance Urine pH Ur Specific [place] Urine Protein Urine Glucose (UA) Urine Ketones Urine Blood Urine Nitrite Urine Bilirubin Urine Urobilinogen Ur Leukocyte Esterase Lyme Disease IgG Ab Lyme Disease IgM Ab 12/12/19 12/12/19 12/12/19 04:00 04:00 05:49 WBC RBC Hgb Hct MCV MCH MCHC RDW Std Deviation RDW Coeff of Seema Plt Count MPV Immature Gran % (Auto) Neut % (Auto) Lymph % (Auto) [place] % (Auto) Eos % (Auto) Baso % (Auto) Immature Gran # (Auto) Neut # (Auto) Lymph # (Auto) [place] # (Auto) Eos # (Auto) Baso # (Auto) PT INR APTT PTT Ratio Activ Coag Time Kaolin D-Dimer Sodium Potassium Chloride Carbon Dioxide Anion Gap BUN Creatinine Est Cr Clr Drug Dosing Est GFR ( Amer) Est GFR (Non-Af Amer) BUN/Creatinine Ratio Glucose Estimat Average Glucose 131 Hemoglobin A1c 6.2 H Calcium Magnesium Total Bilirubin AST ALT Alkaline Phosphatase Troponin I Total Protein Albumin Globulin Albumin/Globulin Ratio Lipase TSH Urine Color Yellow Urine Appearance Clear Urine pH 6.5 Ur Specific [place] 1.017 Urine Protein Negative Urine Glucose (UA) Trace H Urine Ketones Trace H Urine Blood Negative Urine Nitrite Negative Urine Bilirubin Negative Urine Urobilinogen Negative Ur Leukocyte Esterase Negative Lyme Disease IgG Ab Negative Lyme Disease IgM Ab Negative 12/12/19 12/12/19 06:45 09:25 WBC RBC Hgb Hct MCV MCH MCHC RDW Std Deviation RDW Coeff of Seema Plt Count MPV Immature Gran % (Auto) Neut % (Auto) Lymph % (Auto) [place] % (Auto) Eos % (Auto) Baso % (Auto) Immature Gran # (Auto) Neut # (Auto) Lymph # (Auto) [place] # (Auto) Eos # (Auto) Baso # (Auto) PT INR APTT PTT Ratio Activ Coag Time Kaolin 285 H D-Dimer Sodium Potassium Chloride Carbon Dioxide Anion Gap BUN Creatinine Est Cr Clr Drug Dosing Est GFR ( Amer) Est GFR (Non-Af Amer) BUN/Creatinine Ratio Glucose Estimat Average Glucose Hemoglobin A1c Calcium Magnesium Total Bilirubin AST ALT Alkaline Phosphatase Troponin I 0.890 H* Total Protein Albumin Globulin Albumin/Globulin Ratio Lipase TSH Urine Color Urine Appearance Urine pH Ur Specific [place] Urine Protein Urine Glucose (UA) Urine Ketones Urine Blood Urine Nitrite Urine Bilirubin Urine Urobilinogen Ur Leukocyte Esterase Lyme Disease IgG Ab Lyme Disease IgM Ab Medications Administered Current Inpatient Medications Acetaminophen (Tylenol) 650 mg PO Q4H PRN PRN Reason: Pain or Fever Stop: 01/11/20 07:54 Atorvastatin Calcium (Lipitor) [facility] [place]: 01/11/20 09:44 Lactated Ringer's (Lr) 1,000 mls @ 40 mls/hr IV .Q24H ONE Stop: 12/13/19 07:59 Last Admin: 12/12/19 10:36 Dose: Not Given Documented by: Lorazepam (Ativan) 0.5 mg in 1 mls @ 1 mls/min IV Q4H PRN PRN Reason: Anxiety/Agitation Stop: 01/11/20 07:54 Promethazine HCl 12.5 mg/ (Sodium Chloride) 50.5 mls @ 202 mls/hr IV Q6H PRN PRN Reason: Nausea And Vomiting Stop: 01/11/20 07:54 Sodium Chloride (Nss 1000ml) 1,000 mls @ 100 mls/hr IV .Q10H [facility] Stop: 12/12/19 17:14 Last Admin: 12/12/19 10:37 Dose: 100 mls/hr Documented by: Levothyroxine Sodium (Synthroid) 125 mcg PO DAILYBB [facility] Stop: 01/11/20 08:14 Lisinopril (Zestril) 5 mg PO QAM [facility] Stop: 01/12/20 08:59 Metoprolol Tartrate (Lopressor) 25 mg PO BID [facility] Stop: 01/11/20 20:59 Morphine Sulfate (Morphine Sulfate) 4 mg IV Q4H PRN PRN Reason: Pain Stop: 12/26/19 07:54 Last Admin: 12/12/19 08:10 Dose: 2 mg Documented by: Nitroglycerin (Nitrostat) 0.4 mg SL UD PRN PRN Reason: Chest Pain Stop: 01/11/20 07:54 Ondansetron HCl (Zofran) 4 mg IV Q6H PRN PRN Reason: Nausea And Vomiting Stop: 01/11/20 09:39 Ticagrelor (Brilinta) 90 mg PO BID JOHN Stop: 01/11/20 20:59 Tramadol HCl (Ultram) 25 - 50 mg PO Q4H PRN PRN Reason: Pain Stop: 01/11/20 07:54
[2019-12-12] MEDS: LEVOTHYROXINE SODIUM 125 MCG TABLET PO SCH (11:00)
[2019-12-12] MEDS: ATORVASTATIN 40 MG TAB PO SCH (11:00)
--- NOTE | 2019-12-12 16:50 | Cardiac Catheterization ---
[facility] Data: Maintenance Journeyman Cardiac Status Clinical evaluation leading to the procedure CAD Presenation: Non STEMI Anginal Classification: CCS IV Heart Failure: No Cardiogenic Shock within 24 Hours: No Cardiac Arrest within 24 Hours: No Imaging Studies Past 6 Months: No Stress Studies Past 6 Months: No Diagnostic Physicians Name: Stevo Burks MD Status: Emergency Closure Device Percutaneous Entry Location: Radial Closure Device: Radial Band Recommendations: PCI without planned CABG PCI Indication: PCI for high risk Non-TOMAS Lesion Segment Name: proximal LAD Culprit Artery: Yes Stenosis Prior to Rx (%): 100 Chronic Total Occlusion: No IVUS: No FFR: No Pre-Procedure HUONG Flow: 0 Previously Treated Lesion: No Lesion Complexity: Non-High/Non-C Lesion Length (mm): 30 Thrombus Present: Yes Bifurcation Lesion: No Guidewire Across Lesion: Stenosis Post-Procedure (%): 0 Post-Procedure HUONG Flow: 3 Devices(s) Deployed: Yes Yes Intraprocedure Events Significant Disection: No Perforation: No Cardiac Cath Procedure Full Procedure Date December 12, 2019 Pre-Procedure Diagnosis Pre-Procedure Diagnosis: Non STEMI AUC Score AUC Score: 8 Post-Procedure Diagnosis Post-Procedure Diagnosis: Severe CAD and Successful PCI Procedure(s) Performed Procedure(s) Performed: Coronary Angiography and Drug Eluting Stent Advanced Practice Nurse Stevo Burks MD Vessel Scrapper Helper(s) Marciano Estimated Blood Loss Estimated Blood Loss: 10 Medication(s) Medication(s): Fentanyl, Heparin, Lidocaine 1%, Nicardipine, Nitroglycerin and Versed Medication(s): Ticagrelor Summary of Findings Indication: 64-year-old woman with family history of premature coronary artery disease who was awoken with sleep with acute onset chest pain this morning. Mildly elevated rising troponin with anterior T wave inversions and persistent chest pain. Access: TR band Catheters: [place], EBU 3.5 guide Findings: LM -large caliber vessel without significant disease LAD -acute 100% proximal occlusion at takeoff of first septal. Diffuse proximal to mid disease after flow reestablished. Circumflex -large caliber vessel, no significant disease. Moderate caliber OM1 and left PLB with luminal irregularities. RCA - Dominant, 100% proximal occlusion, partial filling in the midsegment. PDA fills via [id number] collaterals. -- PCI -- Antithrombotic therapy: Heparin, ticagrelor Procedure: Left main cannulated with EBU 3.5 guide Customer Advocate 50 wire passed across lesion into distal vessel Proximal to mid LAD lesion predilated with 2.5 and 3.0 compliant balloons Dilated lesion stented with 3.5 x 38 mm Maurice drug-eluting stent Stent post-dilated with 3.5 noncompliant balloon IC vasodilators administered for spasm Post procedure HUONG 3 flow, stent well expanded with minimal residual stenosis and no apparent cardiac complications. Arterial Closure: TR Summary: 1. Acute 100% proximal LAD occlusion 2. Chronic proximal RCA occlusion with [id number] collaterals 3. Successful PCI of proximal to mid LAD with single drug-eluting stent (3.5 x 38 mm [place]). Recommendations: Return to PCU for continued monitoring Trend troponin until peak, echocardiogram pending Loaded with ticagrelor 180 mg in sanitation laborer, continue for at least 1 year Hold off on aspirin currently in the setting of reported aspirin induced anaphylaxis Will discuss antiplatelet options going forward - Can continue on ticagrelor alone or consider allergy involvement for aspirin desensitization when stable. For now we will add cilostazol in addition to ticagrelor Continue statin, and ASCVD risk factor modification Consult cardiac Rehab Hemodynamics Rest Ao:: 148/85/111 Final Ao: 141/84/107 LV: -- Recommendations Recommendations: PCI without planned CABG Specimens Specimens: None Radiation Exposure (mGy) 2123 Contrast (mls) 110 Drains Drains: none Anesthesia moderate Procedural Complication(s) None Disposition PCU I attest to the content of the Intraoperative Record and any orders documented therein. Any exceptions are noted below. [facility] Card Cath Procedure Codes Cardiac Catheterization Procedure 1: Cardiovascular Cath Procedures: 05422 Coronaries Moderate Sedation Procedure 1: Sedation/Anesthesia: 13599 Mod Sedation by the same physician;Init15 Min Child Age 5 & Up Procedure 2: Sedation/Anesthesia: 56574 Mod Sedation by the same physician; Ea [id number] Minutes Stenting Procedure 1: Cardiovascular Stent Procedures: 53911 Perc transluminal revascularization of acute sub/total occl, aMI PG Care Time/CCT Total # of Minutes Spent Total Time Spent with Patient: Total time spent is greater than 50% in coordination of care (as documented) at patient's floor/unit and/or counseling patient:
[2019-12-12] MEDS: METOPROLOL TARTRATE 25 MG TAB PO SCH (20:57)
[2019-12-12] MEDS: TICAGRELOR 90 MG TAB PO SCH (20:58)
[2019-12-12] MEDS: cilostazoL 100 MG TAB PO SCH (20:58)
--- NOTE | 2019-12-12 22:24 | Electrocardiogram Report ---
Test Reason : Blood Pressure : / mmHG Vent. Rate : 061 BPM Atrial Rate : 061 BPM P-R Int : 158 ms QRS Dur : 082 ms QT Int : 382 ms P-R-T Axes : 053 -18 109 degrees QTc Int : 384 ms Normal sinus rhythm Left ventricular hypertrophy with repolarization abnormality Abnormal ECG No previous ECGs available Confirmed by Colby Anthony ([id number]) on 12/12/2019 10:24:50 PM Referred By: REFERRED SELF Confirmed By:Colby Anthony
--- NOTE | 2019-12-12 22:28 | Electrocardiogram Report ---
Test Reason : Blood Pressure : / mmHG Vent. Rate : 056 BPM Atrial Rate : 056 BPM P-R Int : 174 ms QRS Dur : 066 ms QT Int : 442 ms P-R-T Axes : 055 -21 109 degrees QTc Int : 426 ms Sinus bradycardia Minimal voltage criteria for LVH, may be normal variant Anterolateral infarct , age undetermined Abnormal ECG When compared with ECG of 12-DEC-2019 03:57, Anterolateral infarct is now Present Confirmed by Colby Anthony ([id number]) on 12/12/2019 10:28:42 PM Referred By: REFERRED SELF Confirmed By:Colby Anthony
--- NOTE | 2019-12-12 22:32 | Electrocardiogram Report ---
Test Reason : Blood Pressure : / mmHG Vent. Rate : 053 BPM Atrial Rate : 053 BPM P-R Int : 162 ms QRS Dur : 074 ms QT Int : 472 ms P-R-T Axes : 042 -07 122 degrees QTc Int : 442 ms Sinus bradycardia Inferior infarct , age undetermined Anterolateral infarct (cited on or before 12-DEC-2019) T wave abnormality, consider lateral ischemia Abnormal ECG When compared with ECG of 12-DEC-2019 08:01, No significant change Confirmed by Colby Anthony ([id number]) on 12/12/2019 10:32:14 PM Referred By: REFERRED SELF Confirmed By:Colby Anthony
[2019-12-13] MEDS: LEVOTHYROXINE SODIUM 125 MCG TABLET PO SCH (06:13)
[2019-12-13 06:59] LABS: Basophils # (auto) 0.01 K/uL (0-0.2); Basophils % (auto) 0.1 %; Eosinophils # (auto) 0.09 K/uL (0-0.5); Eosinophils % (auto) 1.3 %; Hematocrit (blood only) 38.1 % (37-47); Hemoglobin 12.5 g/dL (12.0-16.0); Immature Granulocytes # (auto) 0.01 K/uL (0.00-0.02); Immature Granulocytes % (auto) 0.1 %; Lymphocytes # (auto) 1.73 K/uL (1.2-3.4); Lymphocytes % (auto) 25.9 %; Mean Corpuscular Hemoglobin 28.5 pg (25-34); Mean Corpuscular Hgb Conc 32.8 g/dL (32-36); Monocytes # (auto) 0.73 K/uL (0.11-0.59); Monocytes % (auto) 10.9 %; Neutrophils # (auto) 4.12 K/uL (1.4-6.5); Neutrophils % (auto) 61.7 %; Platelet Count 179 K/uL (130-400); RDW Coefficient of Variation 13.9 % (11.5-14.5); RDW Standard Deviation 44.1 fL (36.4-46.3); Red Blood Count 4.38 M/uL (4.2-5.4); White Blood Count 6.69 K/uL (4.8-10.8)
[2019-12-13 07:36] LABS: BUN Creatinine Ratio 11.1 (10-20); Calcium 8.4 mg/dl (8.5-10.1); Creatinine Clr Calc Pharmacy 62.1 ml/min; Est GFR (African American) 66.7; Est GFR (Non-African American) 57.5
[2019-12-13] MEDS: cilostazoL 100 MG TAB PO SCH (08:23)
[2019-12-13] MEDS: METOPROLOL TARTRATE 25 MG TAB PO SCH (08:23)
[2019-12-13] MEDS: TICAGRELOR 90 MG TAB PO SCH (08:24)
[2019-12-13] MEDS: ATORVASTATIN 40 MG TAB PO SCH (08:24)
[2019-12-13] MEDS ORDERED: lisinopriL 10 MG TAB PO SCH (09:00)
[2019-12-13] MEDS ORDERED: lisinopriL 5 MG TAB PO SCH (09:00)
--- NOTE | 2019-12-13 23:57 | Hospitalist Progress Note ---
Date of Service delayed entry date of service noted below December 13, 2019 Assessment & Plan (1) Chest pain: Non-ST elevation [place] -- chest pain persisted Heart Alert called -- s/p Cardiac Catherization by Dr. Stevo Burks Summary: 1. Acute 100% proximal LAD occlusion 2. Chronic proximal RCA occlusion with [id number] collaterals 3. Successful PCI of proximal to mid LAD with single drug-eluting stent (3.5 x 38 mm Maurice). -- Troponin elevated from 0.18 --> 0.8 --> 47 Third EKG showing T wave depressions in leads I to III Echo: severe anterior wall and apical wall hypokinesis, EF 450-50% -- discharge on: Brillinta and Pletal (patient has aspirin induced anaphylaxis) patient called as Brillinta not affordable at this time, discussed with Dr. La, recommend Plavix + Pletal patient declines Lipitor as it has caused "liver failure" in the past continue strict risk factor control patient to be called by Cardiology Clinic for ff up Hypertension -- Hypertension already given metoprolol and lisinopril stable History of hypothyroidism TSH normal Continue levothyroxine D/C home ff up with PCP in1 week, patient to be called for appt, sched office closed ff up with Aircraft Inspection Record Clerk, Cardio clinic to call patient case discussed with patient and her family in detail and at length all questions answered she is understanding, agreeable, comfortable with plan of care Subjective ff up for NSTEMI seen resting in bed, comfortable in good spirits chest pain free denies SOB, dizziness, palpitations no other symptoms ambulating with no problems states she is ready and would like to be discharged Review of Systems Review of Systems: All systems reviewed & are unremarkable except as noted in HPI & below Physical Exam Physical Exam: General- oriented x 3, not in distress, speaks in sentences wi th no effort or accessory muscle use Eyes- anicteric Neck- no JVD Lungs- clear breath sounds bilaterally, no rales/wheezes Heart- normal rate, regular rhythm; no murmurs Abdomen- normal bowel sounds, nondistended, soft, nontender Extremities- no pretibial edema, no calf tenderness right wrist- no hematoma, edema Neuro- alert, oriented x 3; no gross focal neurologic deficits Skin- warm & dry Results & Data ([facility]) Vital Signs (Past 12 Hours) Vital Signs Temp Pulse Pulse Resp BP Pulse Ox 12/13/19 14:58 82 12/13/19 14:28 36.7 C 56 L 18 110/68 95 12/13/19 12:28 36.7 C 56 L 18 110/68 95 Laboratory Results all noted and reviewed
--- NOTE | 2019-12-14 12:19 | Electrocardiogram Report ---
Test Reason : Blood Pressure : / mmHG Vent. Rate : 057 BPM Atrial Rate : 057 BPM P-R Int : 168 ms QRS Dur : 074 ms QT Int : 474 ms P-R-T Axes : 038 -15 112 degrees QTc Int : 461 ms Sinus bradycardia Left ventricular hypertrophy with repolarization abnormality Anterolateral infarct (cited on or before 12-DEC-2019) Abnormal ECG When compared with ECG of 12-DEC-2019 05:08, No significant change Confirmed by Hayden Fields ([id number]) on 12/14/2019 12:19:18 PM Referred By: REFERRED SELF Confirmed By:Hayden Fields
--- NOTE | 2019-12-16 07:56 | Discharge Summary ---
Date of Service December 16, 2019 Admission HPI Per Admitting Provider History obtained from patient, family, and records. Medical history significant for hypothyroidism, hyperlipidemia, asthma as per records. Yesterday morning patient woke up with substernal pain going to her left radha ulder with some shortness of breath no cough no diaphoreses. No prior episodes. Spontaneous resolution of chest pain after 5 minutes. Patient roused from sleep this morning with recurrence of chest pain. Initial SBP at the ER 190s. Patient unaware of high blood pressure issues in the past. Denies unusual stress, dietary discretion, OTC NSAID intake. Chest pain relieved by nitroglycerin administration at the ER. IV heparin started at the ER for possible ACS. Medical History as above Surgical History : Tonsillectomy/adenoidectomy, left middle finger ORIF Family History : Heart disease, diabetes Personal/Social history : Non-smoker, occasional EtOH intake, retired pharmacist Admission Exam Per Admitting Provider GENERAL: Comfortable, obese, pleasant, no respiratory distress SKIN: Normal color, warm HEENT: Bespectacled, [place] palpebral conjunctivae, no ptosis, dry buccal mucosa NECK : Supple, short neck, no tenderness CHEST : CTA, no tenderness HEART : RRR, no obvious murmurs ABDOMEN: Some distention, nontender EXTREMITIES : No LE swelling/tenderness, no other conspicuous deformities noted NEUROLOGIC : Coherent, no facial asymmetry, no other gross focality Principal Diagnosis NON ST ELEVATION [place], CORONARY ARTERY DISEASE Discharge Exam General- oriented x 3, not in distress, speaks in sentences with no effort or accessory muscle use Eyes- anicteric Neck- no JVD Lungs- clear breath sounds bilaterally, no rales/wheezes Heart- normal rate, regular rhythm; no murmurs Abdomen- normal bowel sounds, nondistended, soft, nontender Extremities- no pretibial edema, no calf tenderness right wrist- no hematoma, edema Neuro- alert, oriented x 3; no gross focal neurologic deficits Skin- warm & dry Discharge Data Allergies Allergy/AdvReac Type Severity Reaction Status Date / Time aspirin Allergy Severe Anaphylaxis Verified 12/12/19 04:14 chicken derived Allergy Severe sob,swellin Verified 12/12/19 04:14 g Penicillins Allergy Intermediate Rash Verified 12/12/19 04:14 Consultations 12/12/19 05:58 ED Decision to Admit Stat 12/12/19 07:55 Consult Cardiology Routine 12/12/19 09:43 Consult Cardiac Rehabilitation Routine Procedures Performed Operation Date: 12/12/19 08:00 Actual Procedures p Drug Eluting Stent SGl Vessel - Sagra Burks MD s Cineradiography w/Routine Exam - Sagar Burks MD s Cath, Coronaries ONLY (no LV) - Sagar Burks MD Ordered Studies 12/12/19 08:28 CL Cath Imgs for PACS use only Stat Hospital Course (1) Chest pain: Non-ST elevation [place] -- chest pain persisted Heart Alert called -- s/p Cardiac Catherization by Dr. Stevo Burks Summary: 1. Acute 100% proximal LAD occlusion 2. Chronic proximal RCA occlusion with [id number] collaterals 3. Successful PCI of proximal to mid LAD with single drug-eluting stent (3.5 x 38 mm Maurice). -- Troponin elevated from 0.18 --> 0.8 --> 47 Third EKG showing T wave depressions in leads I to III Echo: severe anterior wall and apical wall hypokinesis, EF 450-50% -- discharge on: Brillinta and Pletal (patient has aspirin induced anaphylaxis) patient called as Brillinta not affordable at this time, discussed with Dr. La, recommend Plavix + Pletal Metoprolol tartrate, Lisinopril patient declines Lipitor as it has caused "liver failure" in the past continue strict risk factor control patient to be called by Cardiology Clinic for ff up Pre-DM -- A1c 6.2 -- further management as outpatient Dyslipidemia -- LDL 146 -- further management as outpatient Hypertension -- started on metoprolol and lisinopril -- monitor as outpatient History of hypothyroidism TSH normal Continue levothyroxine D/C home ff up with PCP in1 week, patient to be called for appt, sched office closed ff up with Drum Handler, Cardio clinic to call patient case discussed with patient and her family in detail and at length all questions answered she is understanding, agreeable, comfortable with plan of care Total Time Total Time Spent Total Time Spent (In Minutes): 45 minutes Discharge Plan Discharge Items Patient Disposition: Home - Self-Care Reason For Visit: htn crisis, cp Discharge Diagnosis: SEVERE CORONARY ARTERY DISEASE, NON-ST ELEVATION MYOCARDIAL INFARCTION Activity: As commented below Activity Comment: No heavy exertion until evaluated by primary care physician Lifting: Wait until after follow-up appointment Exercise/Sports: Wait until after follow-up appointment Driving/Machine Use: No driving until allowed by primary care physician Non-emergency contact: Primary Care Provider and Drum Handler Call non-emergency contact if: you have any medication questions, you have a fever, your wound has increased redness, your wound has increased drainage and your wound pain has increased Follow-up/Referrals: Alla Emery MD [Primary Care Provider] - Del La DO [Drum Handler] - Diet: Heart Healthy and Low Fat Addtl Attending Provider Instructions: Please review new medication list and follow instructions carefully. Instructions for Nitroglycerin: take 1 dose promptly in response to chest pain. If pain is unrelieved or worsened 3 to 5 minutes after 1 dose, call immediately Continue discussion regarding Lipitor as outpatient with lap winding machine operator. Please follow-up with your primary care physician within 1 week. The clinic will be calling you for the appointment. Please follow-up with lap winding machine operator Dr. La in 2 weeks. Please call their clinic for an appointment. Drink plenty of fluids daily. . Who to Call and When: Medical Emergencies: If at any time you feel your situation is an emergency, please call 911 immediately. Call 911 immediately or go to your nearest Emergency Room if you experience any of the following: Warning Signs and Symptoms of a Heart Attack * Chest pain that is not relieved by medication * Shortness of breath Pending Studies at Discharge: Yes Studies:: repeat basic metabolic profile in Primary care physician's office on follow-up this coming week Stand-Alone Forms: Call Back Authorization, [facility], Smoking Cessation Medications and DC Order Prescriptions: New cilostazol 100 mg Tablet 100 mg PO BID 30 Days Qty: 60 RF: 2 lisinopril 10 mg Tablet 10 mg PO QAM 30 Days Qty: 30 RF: 2 nitroglycerin [Nitrostat] 0.4 mg Tablet, Sublingual 0.4 mg sublingual UD PRN (Reason: chest pain) Qty: 15 RF: 2 metoprolol tartrate 25 mg Tablet 25 mg PO BID 30 Days Qty: 60 RF: 2 clopidogrel [Plavix] 75 mg tablet 75 mg PO DAILY Qty: 30 RF: 2 Continued levothyroxine [Levoxyl] 125 mcg Tablet 125 mcg PO DAILY RF: 0 cyclobenzaprine 10 mg Tablet 10 mg PO DIRECTED PRN (Reason: muscle spasms) RF: 0 Albuterol Nebulizer 1 dose inhalation DIRECTED PRN (Reason: sob/wheezing) RF: 0 Discharge Orders: Discharge Order (Routine); Ordered 12/13/19 Ordered By: Fabrizio Mcmanus/Other Patient Handouts: Prediabetes, Coronary Stents, Cardiac Catheterization, Cilostazol tablets, Ticagrelor oral tablet, Metoprolol tablets, Nitroglycerin sublingual tablets, Lisinopril tablets, A1C Admission Data Admit Date/Time: 12/12/19 06:20 Attending Provider: Fabrizio Dejesus Admit Provider: Ming Hernandez Primary Care Provider: Alla Emery Other Providers: Del La Joseph N. Other Interventions: Discharge Summary Assessment (RN) Last Done: 12/13/19 14:28 DC Date/Time DO NOT enter until pt leaves facility: 12/13/19 15:18
== END 2019-12-13 15:18 | disposition home or self-care (01) | DRG 247 ==
LOC: ED 03:54 → 2S 06:20
PROC: CLB.CCO (2019-12-12 08:00)